=== PATIENT | male | born 1970 | race Caucasian/White ===

== ENCOUNTER 2020-09-12 14:20 | Observation (INO) | payer SELFPAY ==
[2020-09-12 14:21] VITALS: BP 162/101; PULSE 107; RESP 18; TEMP 36.4; O2SAT 96; BMI 31.3
--- NOTE | 2020-09-12 14:32 | EX.ED.DYSGE1 ---
HPI History of Present Illness Chief Complaint: Substance Abuse Informant: patient Narrative Narrative: Patient presents asking for help with alcohol detox. Patient admits to drinking beer and wine and states he probably drinks 1 to 2 L of alcohol a day. He has been drinking pretty regularly since the age of 17. He has been through rehab in the past and the longest he has remained sober has been 2 years. Patient's last drink was just prior to arrival. He denies difficulty with detox in the past and denies ever having a seizure. [facility] Medical History (Updated 09/12/20 @ 16:[address] Laura Reinoso MD) Asthma Home Medications budesonide-formoterol 2 inh INHALATION BID PRN 09/12/20 [History Last Taken 09/12/20] Allergy/AdvReac Type Severity Reaction Status Date / Time No Known Allergies Allergy Verified 09/12/20 14:20 Social History (Updated 09/12/20 @ 14:[address] Laura Reinoso MD) Smoking Status: Current every day smoker tobacco type: cigarettes alcohol intake: current alcohol intake frequency: 3 or more drinks per day Alcohol type: beer and wine substance use type: does not use ROS ROS ED Constitutional Constitutional ED: Denies chills or fever(s) Eyes Eyes: Denies change in vision ENT ENT ED: Denies sore throat Cardiovascular Cardiovascular: Denies chest pain Respiratory/Chest Respiratory/Chest: Denies cough or dyspnea Gastrointestinal Gastrointestinal: Denies abdominal pain, diarrhea, nausea or vomiting Genitourinary Genitourinary ED: Denies dysuria Musculoskeletal Musculoskeletal: Denies back pain Integumentary Denies rash Neurologic Neurologic: Denies headache(s) or weakness Psychiatric Psychiatric: Denies anxiety or depression Endocrine Endocrinology: Denies polydipsia or polyuria Allergic/Immunologic Allergic/Immunologic ED: Denies urticaria EXAM Physical Exam Const Vital Signs: 09/12/20 14:21 Temperature 97.5 F L Temperature Source Temporal Pulse Rate 107 H Respiratory Rate 18 Blood Pressure 162/101 H Blood Pressure Mean 121 Pulse Ox 96 Oxygen Delivery Method Room Air Positive well nourished and well developed General Appearance ED: well developed and other Smells of alcoholic beverage HEENT Reports normocephalic and head/scalp atraumatic Eyes PERRL and EOMs intact bilaterally Neck supple Chest Wall inspection of chest normal and palpation of chest normal Resp normal respiratory effort and clear to auscultation bilaterally Cardio regular rate and regular rhythm GI normal to inspection, nondistended, normoactive bowel sounds Palpation: soft Extremity normal to inspection Neuro oriented x3 and no sensory deficits noted Sensorium / Orientation: alert Motor Exam: strength 5/5 throughout Psych mental status grossly normal Skin no rashes or lesions noted MDM MDM MDM Narrative Medical decision making narrative: Addiction medicine labs are drawn. Lab Data Attestation: I reviewed the patient's lab results. Labs: Laboratory Results - last 24 hr 09/12/20 09/12/20 09/12/20 14:50 14:50 14:50 WBC 9.3 RBC 5.10 Hgb 16.0 Hct 46.9 MCV 92.0 MCH 31.4 MCHC 34.1 RDW Std Deviation 41.7 RDW Coeff of Cristofer 12.3 Plt Count 199 MPV 9.1 Immature Gran % (Auto) 0.200 Neut % (Auto) 50.5 Lymph % (Auto) 39.0 [place] % (Auto) 8.0 Eos % (Auto) 1.4 Baso % (Auto) 0.9 Absolute Neuts (auto) 4.7 Absolute Lymphs (auto) 3.63 Nucleated RBC % 0 Sodium 140 Potassium 3.9 Chloride 104 Carbon Dioxide 26.0 Anion Gap 10 BUN 7 Creatinine 0.84 Estim Creat Clear Calc 99.52 Est GFR (MDRD) Af Amer 123 Est GFR (MDRD) Non-Af 101 BUN/Creatinine Ratio 8.3 L Glucose 169 H Calcium 8.5 Total Bilirubin 0.60 AST 156 H ALT 85 H Alkaline Phosphatase 108 Total Protein 7.4 Albumin 3.8 Globulin 3.6 Albumin/Globulin Ratio 1.1 Urine Opiates Screen Urine Methadone Screen Ur Barbiturates Screen Ur Phencyclidine Scrn Ur Amphetamines Screen U Methamphetamin-MDMA U Benzodiazepines Scrn Urine Cocaine Screen U Cannabinoids Screen Ur Drug Screen Comment Ethyl Alcohol 440.0 H* 09/12/20 15:40 WBC RBC Hgb Hct MCV MCH MCHC RDW Std Deviation RDW Coeff of Cristofer Plt Count MPV Immature Gran % (Auto) Neut % (Auto) Lymph % (Auto) [place] % (Auto) Eos % (Auto) Baso % (Auto) Absolute Neuts (auto) Absolute Lymphs (auto) Nucleated RBC % Sodium Potassium Chloride Carbon Dioxide Anion Gap BUN Creatinine Estim Creat Clear Calc Est GFR (MDRD) Af Amer Est GFR (MDRD) Non-Af BUN/Creatinine Ratio Glucose Calcium Total Bilirubin AST ALT Alkaline Phosphatase Total Protein Albumin Globulin Albumin/Globulin Ratio Urine Opiates Screen NEGATIVE Urine Methadone Screen NEGATIVE Ur Barbiturates Screen NEGATIVE Ur Phencyclidine Scrn NEGATIVE Ur Amphetamines Screen NEGATIVE U Methamphetamin-MDMA NEGATIVE U Benzodiazepines Scrn NEGATIVE Urine Cocaine Screen NEGATIVE U Cannabinoids Screen NEGATIVE Ur Drug Screen Comment Ethyl Alcohol Treatment and Re-Evaluation Comments:: Labs are reviewed. Patient did review the checklist of rules for the detox program. He has reportedly signed this and is in agreement. I will speak with the hospitalist regarding admission. Discharge Plan Triage Chief Complaint: Substance Abuse ED Provider: Laura Reinoso Dx/Rx/DC Orders Clinical Impression: Alcohol intoxication, Desire for detoxification Prescriptions: No Action budesonide-formoterol 160-4.5 mcg/actuation HFA aerosol inhaler 2 inh INHALATION BID PRN (Reason: copd) RF: 0 Primary Care Provider: Care Physician,No Primary Referrals: Care Physician,No Primary [Primary Care Provider] - Disposition Disposition: Acute Care Hospital [facility]
[2020-09-12 15:10] LABS: Absolute Lymphocyte Count 3.63 X10^3/uL (0.83-4.51); Absolute Neutrophil Count 4.7 X10^3/uL (2.0-7.7); Basophil# 0.08 X10^3/uL; Basophil% 0.9 % (0-1); Eosinophil# 0.13 X10^3/uL; Eosinophils% 1.4 % (0-5); Hematocrit 46.9 % (40-54); Lymphocyte # 3.63 X10^3/ul (0.83-4.51); Mean Corp Hgb Conc 34.1 g/dL (32-36); Mean Corpuscular Hgb 31.4 pg (27.0-32.0); Mean Platelet Vol. 9.1 fl (6.2-12.0); Monocyte# 0.74 X10^3/uL; NRBC Flagged by Analyzer 0 % (0-5); Neutrophil % 50.5 % (47-70); Platelet Count 199 K/mm3 (150-450); RBC Distribution Width CV 12.3 % (11.6-14.6); RBC Distribution Width SD 41.7 fl (35.1-43.9); White Blood Count 9.3 K/mm3 (4.4-11.0)
[2020-09-12 15:24] LABS: ALB/GLOB Ratio 1.1 RATIO (0.9-2.4); AST(SGOT) 156 U/L (15-37); Alanine Aminotransfer ALT/SGPT 85 U/L (16-61); Albumin, Serum 3.8 g/dL (3.2-5.0); Alkaline Phosphatase 108 U/L (45-117); Anion Gap 10 (5-15); BUN 7 mg/dL (7-18); BUN/Creat Ratio 8.3 RATIO (10-20); Calcium,Total 8.5 mg/dL (8.5-10.1); Chloride 104 mmol/L (98-107); Creatinine, Serum 0.84 mg/dL (0.70-1.30); EST Glomerular Filtration Rate 101 mL/min (>60); Est Glom Filt Rate - Afr Amer 123 mL/min (>60); Estimated Creatinine Clearance 99.52 ml/min; Globulin 3.6 g/dL (2.2-4.2); Glucose 169 mg/dL (74-106); Potassium 3.9 mmol/L (3.5-5.1); Protein, Total 7.4 g/dL (6.4-8.2); Sodium Level 140 mmol/L (136-145)
[2020-09-12 16:00] LABS: Amphetamine Urine VISTA NEGATIVE (<1000 ng/mL); Barbiturate Urine VISTA NEGATIVE (< 200 ng/mL); Benzodiazepine Urine VISTA NEGATIVE (< 200 ng/mL); Cocaine Urine VISTA NEGATIVE (< 300 ng/mL); Ecstacy Urine VISTA NEGATIVE (< 500 ng/mL); Methadone Urine VISTA NEGATIVE (< 300 ng/mL); PCP Urine VISTA NEGATIVE (< 25 ng/mL); THC Urine VISTA NEGATIVE (< 50 ng/mL); Vista UDS pH Range 5
--- NOTE | 2020-09-12 16:10 | CM.ED ---
JORDYN Note: JORDYN Referral Source: Case Find Referral Reason: ALESSIA COBB met with patient. He reports he wants detox. Patient said that he uses between 12 pack-2 Liters of wine daily. He said that his last use was right before I came in. JORDYN explained [facility] program and contact and patient said he was ok with it. JORDYN called Lis Schneider at [facility] and updated her about patient being admitted to [facility] program. Plan: [facility] when medically cleared [facility]
--- NOTE | 2020-09-12 16:35 | PCM.HP.STD ---
Documented by User: Soni Koroma NP, SHEAR GRINDER OPERATOR-C 09/12/20 16:51 HPI - General General Date of Admission: 09/12/20 HPI Narrative ERIKA CARBAJAL, is a 50 M who presents to the emergency room due requesting withdrawal from alcohol. Patient states his last drink was about an hour ago. He typically drinks a 12 pack of beer or 1-2 L of wine per day. Patient states he has drank heavily since the age of 17. Patient states he has been through detox in the past, most recently in 2017. He denies history of seizure with withdrawal. He denies other drug use. Current pack per day smoker. Denies any withdrawal symptoms currently. Discussed medical stabilization protocol and patient states I just want detox, noting that he does not wish to participate in [facility] services. Upon further discussion, patient agreeable to consult. He has a history of COPD and tobacco dependence. PFSH Medical History Asthma Depression Smoker Home Medications budesonide-formoterol 2 inh INHALATION BID PRN 09/12/20 [History Last Taken 09/12/20] Allergy/AdvReac Type Severity Reaction Status Date / Time No Known Allergies Allergy Verified 09/12/20 14:20 Family History (Updated 09/12/20 @ 16:43 by Soni Koroma NP, SHEAR GRINDER OPERATOR-C) Mother Cancer related to leukemia Father No problems noted. Social History Smoking Status: Current every day smoker tobacco type: cigarettes alcohol intake: current alcohol intake frequency: 3 or more drinks per day Alcohol type: beer and wine substance use type: does not use ROS Constitutional Constitutional: Denies change in weight, chills, fatigue, fever(s) or weakness Cardiovascular Cardiovascular: Denies chest pain, edema, lightheadedness, palpitations or syncope Respiratory/Chest Respiratory/Chest: Denies cough, dyspnea, productive cough, shortness of breath at rest, shortness of breath with exertion or wheezing Gastrointestinal Gastrointestinal: Denies abdominal pain, constipation, diarrhea, nausea or vomiting Genitourinary Genitourinary: Denies burning urination, difficulty urinating, dysuria, hematuria, urinary frequency, urinary incontinence or urinary urgency Musculoskeletal Musculoskeletal: Denies back pain, joint pain or muscle weakness Integumentary Integumentary: Reports systems reviewed and no addt'l complaints, except as documented Neurologic Neurologic: Denies abnormal speech, confusion, dizziness, focal weakness, numbness, paresthesias, seizure-like activity or syncope Psychiatric Psychiatric: Denies anxiety or depression Hematologic/Lymphatic Hematologic/Lymphatic: Denies anemia, easy bleeding or easy bruising Allergic/Immunologic Allergic/Immunologic: Denies hives or asthma Vital Signs Vital Signs Vital Signs: 09/12/20 14:21 Temperature 97.5 F L Temperature Source Temporal Pulse Rate 107 H Respiratory Rate 18 Blood Pressure 162/101 H Blood Pressure Mean 121 Pulse Ox 96 Oxygen Delivery Method Room Air Weight Weight: 205 lb 14.588 oz Body Mass Index (BMI) 31.3 Physical Exam Const alert, oriented x3 and no apparent distress Orientation / Consciousness: awake, oriented to person, oriented to place and oriented to time HEENT normocephalic and moist oral mucous membranes Eyes PERRL, EOMs intact bilaterally and conjunctivae normal Neck no lymphadenopathy Resp normal respiratory effort and clear to auscultation bilaterally Cardio regular rate, regular rhythm and no murmurs Peripheral Pulses: pulses 2+ throughout GI normal to inspection, nondistended, normoactive bowel sounds, non-tender and non-distended Extremity normal to inspection Skin no rashes or lesions noted Lesions: no lesions Rashes: no rashes Trauma: no lacerations or abrasions Neuro CN's II-XII intact bilaterally, no focal motor deficits, no sensory deficits noted and deep tendon reflexes 2+ bilaterally Psych mental status grossly normal and affect normal Lab / Micro Data Result Diagrams: 09/12/20 14:50 09/12/20 14:50 Labs: Laboratory Results - last 24 hr 09/12/20 09/12/20 09/12/20 14:50 14:50 14:50 WBC 9.3 RBC 5.10 Hgb 16.0 Hct 46.9 MCV 92.0 MCH 31.4 MCHC 34.1 RDW Std Deviation 41.7 RDW Coeff of Cristofer 12.3 Plt Count 199 MPV 9.1 Immature Gran % (Auto) 0.200 Neut % (Auto) 50.5 Lymph % (Auto) 39.0 [place] % (Auto) 8.0 Eos % (Auto) 1.4 Baso % (Auto) 0.9 Absolute Neuts (auto) 4.7 Absolute Lymphs (auto) 3.63 Nucleated RBC % 0 Sodium 140 Potassium 3.9 Chloride 104 Carbon Dioxide 26.0 Anion Gap 10 BUN 7 Creatinine 0.84 Estim Creat Clear Calc 99.52 Est GFR (MDRD) Af Amer 123 Est GFR (MDRD) Non-Af 101 BUN/Creatinine Ratio 8.3 L Glucose 169 H Calcium 8.5 Total Bilirubin 0.60 AST 156 H ALT 85 H Alkaline Phosphatase 108 Total Protein 7.4 Albumin 3.8 Globulin 3.6 Albumin/Globulin Ratio 1.1 Urine Opiates Screen Urine Methadone Screen Ur Barbiturates Screen Ur Phencyclidine Scrn Ur Amphetamines Screen U Methamphetamin-MDMA U Benzodiazepines Scrn Urine Cocaine Screen U Cannabinoids Screen Ur Drug Screen Comment Ethyl Alcohol 440.0 H* 09/12/20 15:40 WBC RBC Hgb Hct MCV MCH MCHC RDW Std Deviation RDW Coeff of Cristofer Plt Count MPV Immature Gran % (Auto) Neut % (Auto) Lymph % (Auto) [place] % (Auto) Eos % (Auto) Baso % (Auto) Absolute Neuts (auto) Absolute Lymphs (auto) Nucleated RBC % Sodium Potassium Chloride Carbon Dioxide Anion Gap BUN Creatinine Estim Creat Clear Calc Est GFR (MDRD) Af Amer Est GFR (MDRD) Non-Af BUN/Creatinine Ratio Glucose Calcium Total Bilirubin AST ALT Alkaline Phosphatase Total Protein Albumin Globulin Albumin/Globulin Ratio Urine Opiates Screen NEGATIVE Urine Methadone Screen NEGATIVE Ur Barbiturates Screen NEGATIVE Ur Phencyclidine Scrn NEGATIVE Ur Amphetamines Screen NEGATIVE U Methamphetamin-MDMA NEGATIVE U Benzodiazepines Scrn NEGATIVE Urine Cocaine Screen NEGATIVE U Cannabinoids Screen NEGATIVE Ur Drug Screen Comment Ethyl Alcohol Assessment & Plan Assessment/Plan (1) Alcohol intoxication: (2) Desire for detoxification: PLAN: 1. Alcohol intoxication/requesting alcohol detox, chronic alcohol dependence-alcohol level 440 on admission. Medical stabilization per protocol. Phenobarb taper. As needed regimen for somatic complaints. [facility] consult. 2. Tobacco dependence-encouraged cessation. Nicotine replacement patch. 3. Chronic COPD-no exacerbation. 4. Elevated glucose- check hemoglobin A1c. DVT prophylaxis-low risk, not indicated This patient was seen by KATHY Whelan under the supervision of Dr. Alarcon. Documented by User: Dr. Sena Alarcon MD 09/12/20 17:31 HPI - General General Date of Admission: 09/12/20 [facility] Medical History Asthma Depression Smoker Home Medications budesonide-formoterol 2 inh INHALATION BID PRN 09/12/20 [History Last Taken 09/12/20] Allergy/AdvReac Type Severity Reaction Status Date / Time No Known Allergies Allergy Verified 09/12/20 14:20 Family History (Updated 09/12/20 @ 16:43 by Soni Koroma SHEAR GRINDER OPERATOR, SHEAR GRINDER OPERATOR-C) Mother Cancer related to leukemia Father No problems noted. Social History Smoking Status: Current every day smoker tobacco type: cigarettes alcohol intake: current alcohol intake frequency: 3 or more drinks per day Alcohol type: beer and wine substance use type: does not use Lab / Micro Data Result Diagrams: 09/12/20 14:50 09/12/20 14:50 Addendum Addendum: This patient was seen in conjunction with Soni Koroma. I have independently interviewed and examined the patient and reviewed pertinent historical, laboratory, and other data. I have reviewed her note and concur with her documentation 50-year-old male with past medical history of alcohol abuse, nicotine dependence who comes in requesting for medical stabilization. Patient admits to drinking 12 pack of beer or 1 to 2 pints of wine daily. He last drank 1 hour before coming. Patient requests detox. He initially was now willing to follow-up with program with addiction medicine. He stated that he was going out of the country tomorrow call next month. He plans to be out for 3 months. He later on said he was willing to talk to them. His admitting alcohol level was 440. At the time of being seen, patient denied any new complaints. Physical Exam: Vitals: Gen: Appears disheveled, not pale, not jaundiced CVS:HS I +II, regular, no murmurs RESP: CTA GI: BS present and normal, soft, nontender, no palpable organs EXT:No edema Labs: AST and ALT elevated; no previous labs to compare ASSESSMENT: 1. Acute alcohol intoxication 2. Request for medical stabilization 3. Elevated blood pressure without history of hypertension 4. Elevated liver function secondary to chronic alcohol use Plan: Admit to PCU, start on phenobarb taper Continue on folic acid, multivitamin, thiamine Addiction social work consult Visit Charges Inpatient E&M: 12723 Init Hosp L2
[2020-09-12 17:05] VITALS: BMI 30.5
[2020-09-12 17:11] VITALS: BP 120/72; PULSE 60; RESP 16; TEMP 36.6; O2SAT 96
[2020-09-12 17:41] LABS: Hemoglobin A1c 5.5 % (3.8-5.6)
[2020-09-12] MEDS: Ibuprofen 600 MG Tablet PO (18:44)
--- NOTE | 2020-09-12 19:13 | NURSING ---
Patient called out, states he wants to sign out AMA. He says it is not the right time to do this right now.
--- NOTE | 2020-09-13 12:19 | PCM.DC.SUM ---
Documented by User: Soni Koroma NP, SALESPERSON FLORIST SUPPLIES-C 09/13/20 12:22 Providers Date of Admission: 09/12/20 Date of Discharge: 09/12/20 Primary Care Physician: No Primary Care Phys Reason For Visit: ACUTE ALCOHOL WITHDRAWAL Diagnosis Discharge Diagnosis (1) Alcohol intoxication: Status: Acute Code(s): F10.929 - Alcohol use, unspecified with intoxication, unspecified (2) Desire for detoxification: Status: Acute Medications at Discharge Home Medications budesonide-formoterol 2 inh INHALATION BID PRN 09/12/20 Hospital Course Operations None Procedures None Summary of Care Provided Minutes Spent on Discharge: 35 Hospital Course: Patient is a 50-year-old male admitted 09/12/2020 requesting detox from alcohol. 1. Alcohol intoxication/requesting alcohol detox, chronic alcohol dependence-alcohol level 440 on admission. Medical stabilization per protocol ordered. Phenobarb taper. As needed regimen for somatic complaints. Patient signed out AGAINST MEDICAL ADVICE within 2 hours of being admitted. 2. Tobacco dependence-encouraged cessation. 3. Chronic COPD-no exacerbation. Physical Exam Const alert, oriented x3 and no apparent distress Orientation / Consciousness: awake, oriented to person, oriented to place and oriented to time HEENT normocephalic and moist oral mucous membranes Eyes PERRL, EOMs intact bilaterally and conjunctivae normal Neck no lymphadenopathy Resp normal respiratory effort and clear to auscultation bilaterally Cardio regular rate, regular rhythm and no murmurs Peripheral Pulses: pulses 2+ throughout GI normal to inspection, nondistended, normoactive bowel sounds, non-tender and non-distended Extremity normal to inspection Skin no rashes or lesions noted Lesions: no lesions Rashes: no rashes Trauma: no lacerations or abrasions Neuro CN's II-XII intact bilaterally, no focal motor deficits, no sensory deficits noted and deep tendon reflexes 2+ bilaterally Psych mental status grossly normal and affect normal Patient seen and examined prior to discharge. Physical assessment as noted above. This patient was seen by KATHY Whelan under the supervision of Dr. Alarcon. ABG / Lab / Microbiology Data Result Diagrams: 09/12/20 14:50 09/12/20 14:50 Laboratory: Laboratory Results - last 24 hr 09/12/20 09/12/20 09/12/20 14:50 14:50 14:50 WBC 9.3 RBC 5.10 Hgb 16.0 Hct 46.9 MCV 92.0 MCH 31.4 MCHC 34.1 RDW Std Deviation 41.7 RDW Coeff of Cristofer 12.3 Plt Count 199 MPV 9.1 Immature Gran % (Auto) 0.200 Neut % (Auto) 50.5 Lymph % (Auto) 39.0 [place] % (Auto) 8.0 Eos % (Auto) 1.4 Baso % (Auto) 0.9 Absolute Neuts (auto) 4.7 Absolute Lymphs (auto) 3.63 Nucleated RBC % 0 Sodium 140 Potassium 3.9 Chloride 104 Carbon Dioxide 26.0 Anion Gap 10 BUN 7 Creatinine 0.84 Estim Creat Clear Calc 99.52 Est GFR (MDRD) Af Amer 123 Est GFR (MDRD) Non-Af 101 BUN/Creatinine Ratio 8.3 L Glucose 169 H Hemoglobin A1c Calcium 8.5 Total Bilirubin 0.60 AST 156 H ALT 85 H Alkaline Phosphatase 108 Total Protein 7.4 Albumin 3.8 Globulin 3.6 Albumin/Globulin Ratio 1.1 Urine Opiates Screen Urine Methadone Screen Ur Barbiturates Screen Ur Phencyclidine Scrn Ur Amphetamines Screen U Methamphetamin-MDMA U Benzodiazepines Scrn Urine Cocaine Screen U Cannabinoids Screen Ur Drug Screen Comment Ethyl Alcohol 440.0 H* 09/12/20 09/12/20 14:50 15:40 WBC RBC Hgb Hct MCV MCH MCHC RDW Std Deviation RDW Coeff of Cristofer Plt Count MPV Immature Gran % (Auto) Neut % (Auto) Lymph % (Auto) [place] % (Auto) Eos % (Auto) Baso % (Auto) Absolute Neuts (auto) Absolute Lymphs (auto) Nucleated RBC % Sodium Potassium Chloride Carbon Dioxide Anion Gap BUN Creatinine Estim Creat Clear Calc Est GFR (MDRD) Af Amer Est GFR (MDRD) Non-Af BUN/Creatinine Ratio Glucose Hemoglobin A1c 5.5 Calcium Total Bilirubin AST ALT Alkaline Phosphatase Total Protein Albumin Globulin Albumin/Globulin Ratio Urine Opiates Screen NEGATIVE Urine Methadone Screen NEGATIVE Ur Barbiturates Screen NEGATIVE Ur Phencyclidine Scrn NEGATIVE Ur Amphetamines Screen NEGATIVE U Methamphetamin-MDMA NEGATIVE U Benzodiazepines Scrn NEGATIVE Urine Cocaine Screen NEGATIVE U Cannabinoids Screen NEGATIVE Ur Drug Screen Comment Ethyl Alcohol Meaningful Use Info Meaningful Use Diagnoses (Choose all that apply): None applicable Discharge Plan Admission Admit Date/Time: 09/12/20 16:14 Attending Provider: Sena Alarcon Primary Care Provider: Care Physician,No Primary Discharge Orders/Prescriptions Prescriptions: No Action budesonide-formoterol 160-4.5 mcg/actuation HFA aerosol inhaler 2 inh INHALATION BID PRN (Reason: copd) RF: 0 Referrals / Follow Up: Care Physician,No Primary [Primary Care Provider] - Disposition Disposition (needs filled in before D/C Order can be placed): Against Medical Advice Documented by User: Dr. Sena Alarcon MD 09/13/20 13:10 Providers Date of Admission: 09/12/20 Reason For Visit: ACUTE ALCOHOL WITHDRAWAL Medications at Discharge Home Medications budesonide-formoterol 2 inh INHALATION BID PRN 09/12/20 ABG / Lab / Microbiology Data Result Diagrams: 09/12/20 14:50 09/12/20 14:50 Discharge Plan Admission Admit Date/Time: 09/12/20 16:14 Attending Provider: Sena Alarcon Primary Care Provider: Moreno PhysicianRosy Primary Discharge Orders/Prescriptions Prescriptions: No Action budesonide-formoterol 160-4.5 mcg/actuation HFA aerosol inhaler 2 inh INHALATION BID PRN (Reason: copd) RF: 0 Referrals / Follow Up: Care Physician,No Primary [Primary Care Provider] - Disposition Disposition (needs filled in before D/C Order can be placed): Against Medical Advice Addendum Addendum: This patient was seen in conjunction with Soni Koroma.?I have independently interviewed and examined the patient and reviewed pertinent historical, laboratory, and other data. I have reviewed her note and concur with her documentation 50-year-old male with past medical history of alcohol abuse, nicotine dependence who comes in requesting for medical stabilization.? Patient admits to drinking 12 pack of beer or 1 to 2 pints of wine daily.? He last drank 1 hour before coming.? Patient admitting alcohol level was 440. He was admitted to the [facility] floor on the phenobarbital withdrawal protocol. Patient however signed out AGAINST MEDICAL ADVICE less than 2 hours of admission. Physical exam?see H&P Visit Charges OBSV E&M: 85555 Observ/hosp same date L2
== END 2020-09-12 19:00 | disposition left against medical advice (07) ==
LOC: ED 16:04 → MS3 19:13
PROVIDERS: Nurse Practitioner Family; Admitting Provider Internal Medicine; Emergency Provider Emergency Medicine; Visit Provider Internal Medicine
DX: F10.239 Alcohol dependence with withdrawal, unspecified (principal); F10.229 Alcohol dependence with intoxication, unspecified; F17.210 Nicotine dependence, cigarettes, uncomplicated; J44.9 Chronic obstructive pulmonary disease, unspecified; R73.9 Hyperglycemia, unspecified; Y90.8 Blood alcohol level of 240 mg/100 ml or more
CPT/HCPCS: 80053; 80307; 82077; 83036; 85025; 99218; 99282; A4216; G0378

== ENCOUNTER 2023-03-24 17:43 | Inpatient (IN) | payer MEDICAID, SELFPAY ==
[2023-03-24 17:44] VITALS: BP 167/115; PULSE 126; RESP 17; TEMP 36.9; O2SAT 98; BMI 35.7
[2023-03-24 19:53] LABS: Absolute Neutrophil Count 8.4 X10^3/uL (2.0-7.7); Basophil# 0.09 X10^3/uL; Basophil% 0.7 % (0-1); Eosinophil# 0.09 X10^3/uL; Eosinophils% 0.7 % (0-5); Hematocrit 44.9 % (40-54); Hemoglobin 15.5 g/dL (13.0-16.5); Lymphocyte % 29.9 % (19-41); Mean Corp Hgb Conc 34.5 g/dL (32-36); Mean Corpuscular Hgb 30.5 pg (27.0-32.0); Mean Corpuscular Volume 88.4 fL (80-94); Mean Platelet Vol. 9.3 fl (6.2-12.0); Monocyte# 1.01 X10^3/uL; Monocyte% 7.4 % (0-10); NRBC Flagged by Analyzer 0 % (0-5); Neutrophil # 8.37 X10^3/uL (2.7-7.7); Platelet Count 195 K/mm3 (150-450); RBC Distribution Width CV 16.5 % (11.6-14.6); RBC Distribution Width SD 53.3 fl (35.1-43.9); Red Blood Count 5.08 M/mm3 (4.6-6.2); White Blood Count 13.7 K/mm3 (4.4-11.0)
[2023-03-24] MEDS: 0.9% Normal Saline (1000mL) 1,000 ML 1000 ML IV (20:00)
[2023-03-24] MEDS: Ondansetron 4 MG/2 ML Vial IV (20:00)
[2023-03-24] MEDS: LORazepam 2 MG/ML Syringe 1 MG IV (20:00)
--- NOTE | 2023-03-24 20:04 | EDS_ITS ---
HPI History of Present Illness Chief Complaint: Substance Abuse Informant: patient and spouse/S.O. Narrative Narrative: Presents for detox and withdrawal from alcohol. Patient states he normally drinks 12-16 beers a day. He last went through detox officially about 5 or 6 years ago. He tried to stop drinking in December. He tried in February. But he states he gets shaky and feels very bad. He starts drinking again. He has been trying to cut back here the last few days to a week. Every time he cuts back he gets nausea and vomiting and he feels shaky and nervous. If he starts drinking the vomiting goes away. He denies abdominal pain. He has not vomited blood or seeing blood in the stool. He has not had hallucinations. But he does feel like he is in withdrawal now. He is pacing and nervous. He would like to be admitted for detox and then get into a program afterwards. [facility] Medical History Alcohol abuse Asthma Depression Smoker Home Medications budesonide-formoterol HFA 160 mcg-4.5 mcg/actuation aerosol inhaler 2 inh inhalation BID PRN copd 09/12/20 [History Last Taken 09/12/20] Allergy/AdvReac Type Severity Reaction Status Date / Time No Known Allergies Allergy Verified 03/24/23 17:44 Family History Mother Cancer related to leukemia Father No problems noted. Social History Smoking Status: Current every day smoker tobacco type: cigarettes alcohol intake: current alcohol intake frequency: 3 or more drinks per day Alcohol type: beer and wine substance use type: does not use ROS ROS ED Constitutional Constitutional ED: Denies chills or fever(s) Eyes Eyes: Denies change in vision ENT ENT ED: Denies rhinorrhea Cardiovascular Cardiovascular: Reports other Details: Can feel his heart beat fast but it does not cause any discomfort for him. ; Denies chest pain or palpitations Respiratory/Chest Respiratory/Chest: Denies cough or dyspnea Gastrointestinal Gastrointestinal: Reports nausea and vomiting; Denies abdominal pain or diarrhea Musculoskeletal Musculoskeletal: Denies myalgias Integumentary Denies rash Neurologic Neurologic: Denies headache(s), paresthesias or weakness Psychiatric Psychiatric: Reports anxiety; Denies depression or suicidal ideation Hematologic/Lymphatic Hematologic/Lymphatic: Denies easy bleeding or easy bruising Allergic/Immunologic Allergic/Immunologic ED: Denies urticaria EXAM Physical Exam Narrative Exam Narrative: CONSTITUTIONAL: Patient is nontoxic in appearance. Cooperative. But he is pacing around the room when I first meet him. HEENT: No notable trauma. Mucous membranes moist. No sinus tenderness. No indication of pain with swallowing. There is just a hint of diaphoresis on his forehead. But he just felt as though he was going to throw up prior to this. He denies actual normal diaphoresis. EYES: No conjunctival injection. No proptosis. No icterus NECK:No JVD. No stridor. CARDIOVASCULAR: Mildly tachycardic rate. Regular rhythm. No notable murmur. No JVD. RESPIRATORY: No respiratory distress. Breathing is unlabored. No wheezes. No rhonchi. No rales. No pain with a deep breath. No chest wall tenderness. GASTROINTESTINAL: Not distended. Bowel sounds are normal. No tenderness. No guarding. No rebound. No palpable mass. No bruit is heard.-Nausea and vomiting his abdomen is overall benign other than mild obesity. GENITOURINARY: No tenderness over the bladder. No CVA tenderness. MUSCULOSKELETAL: Atraumatic. NEUROLOGICAL: Patient is alert and appropriate. No focal deficit noted. Normal gait and balance. SKIN: No noted rashes. No diaphoresis. PSYCHIATRIC: Patient is anxious. But no sign of flight of ideas or hallu cinations. Const Vital Signs: 03/24/23 17:44 Temperature 98.5 F Temperature Source Temporal Pulse Rate 126 H Respiratory Rate 17 Blood Pressure 167/115 H Blood Pressure Mean 132 Pulse Ox 98 Oxygen Delivery Method Room Air MDM MDM MDM Narrative Medical decision making narrative: CBC shows mild elevation of white count at 13.7 which is nonspecific. Platelets are normal. Hemoglobin is normal. Patient's electrolytes show minimally low potassium that should self-correct with diet. Glucose was only mildly up at 122. Liver function test showed mild nonspecific elevations of AST ALT and alkaline phosphatase which he has had before. Serum ethanol is 186. Patient's urine toxicology screen shows no result at this time. But there are no results in there that would change the acute treatment. Toxicology screens in the past have been negative. I discussed case with hospitalist. We will initiate folic acid and thiamine. Will be admitted. With his long history of drinking, trying to stop as an outpatient, having withdrawal symptoms at this time inpatient management is appropriate and safe on this patient. Lab Data Attestation: I reviewed the patient's lab results. Labs: Laboratory Results - last 24 hr 03/24/23 03/24/23 19:41 21:25 WBC 13.7 H RBC 5.08 Hgb 15.5 Hct 44.9 MCV 88.4 MCH 30.5 MCHC 34.5 RDW Std Deviation 53.3 H RDW Coeff of Cristofer 16.5 H Plt Count 195 MPV 9.3 Immature Gran % (Auto) 0.300 Neut % (Auto) 61.0 Lymph % (Auto) 29.9 [place]ine % (Auto) 7.4 Eos % (Auto) 0.7 Baso % (Auto) 0.7 Absolute Neuts (auto) 8.4 H Absolute Lymphs (auto) 4.10 Nucleated RBC % 0 Sodium 136 Potassium 3.4 L Chloride 98 Carbon Dioxide 24.0 Anion Gap 14 BUN 6 L Creatinine 0.74 Estim Creat Clear Calc 110.41 Est GFR (MDRD) Af Amer 142 Est GFR (MDRD) Non-Af 117 BUN/Creatinine Ratio 8.1 L Glucose 122 H Calcium 9.2 Total Bilirubin 1.00 AST 132 H ALT 84 H Alkaline Phosphatase 126 H Total Protein 7.4 Albumin 3.8 Globulin 3.6 Albumin/Globulin Ratio 1.1 Ur Drug Screen Comment Ethyl Alcohol 186.0 EKG Initial EKG: Comments: My independent interpretation of the patient's EKG shows a sinus rhythm with a normal rate at this time at 91. No ventricular ectopy. No acute ST elevation or depression. WV interval, QRS duration and QTc are overall normal Discharge Plan Triage Chief Complaint: Substance Abuse ED Provider: Charlie Gonzalez Dx/Rx/DC Orders Clinical Impression: Desire for detoxification, Alcohol intoxication Prescriptions: No Action budesonide-formoterol 160-4.5 mcg/actuation HFA aerosol inhaler 2 inh INHALATION BID PRN (Reason: copd) Patient Comments: inhale 2 puffs by mouth 1-2 TIMES PER DAY Primary Care Provider: Care Physician,No Primary Referrals: Care Physician,No Primary [Primary Care Provider] - Disposition Disposition: [facility]
[2023-03-24 20:16] LABS: ALB/GLOB Ratio 1.1 RATIO (0.9-2.4); AST(SGOT) 132 U/L (15-37); Alanine Aminotransfer ALT/SGPT 84 U/L (16-61); Albumin, Serum 3.8 g/dL (3.2-5.0); Alkaline Phosphatase 126 U/L (45-117); Anion Gap 14 (5-15); BUN 6 mg/dL (7-18); BUN/Creat Ratio 8.1 RATIO (10-20); Calcium,Total 9.2 mg/dL (8.5-10.1); Chloride 98 mmol/L (98-107); Creatinine, Serum 0.74 mg/dL (0.70-1.30); EST Glomerular Filtration Rate 117 mL/min (>60); Est Glom Filt Rate - Afr Amer 142 mL/min (>60); Estimated Creatinine Clearance 110.41 ml/min; Globulin 3.6 g/dL (2.2-4.2); Glucose 122 mg/dL (74-106); Potassium 3.4 mmol/L (3.5-5.1); Protein, Total 7.4 g/dL (6.4-8.2); Sodium Level 136 mmol/L (136-145)
[2023-03-24 21:59] LABS: Amphetamine Urine VISTA NEGATIVE (<1000 ng/mL); Barbiturate Urine VISTA NEGATIVE (< 200 ng/mL); Benzodiazepine Urine VISTA NEGATIVE (< 200 ng/mL); Cocaine Urine VISTA NEGATIVE (< 300 ng/mL); Ecstacy Urine VISTA NEGATIVE (< 500 ng/mL); Methadone Urine VISTA NEGATIVE (< 300 ng/mL); PCP Urine VISTA NEGATIVE (< 25 ng/mL); THC Urine VISTA NEGATIVE (< 50 ng/mL); Vista UDS pH Range 6
--- NOTE | 2023-03-24 22:14 | PCM.HP.STD ---
[facility] - General General Date of Admission: 03/24/23 Date of Service: 03/24/23 Chief Complaint: Alcohol withdrawal, nausea, vomiting and diaphoresis. HPI Narrative ERIKA CARBAJAL, is a 52-year-old [place] M with a past medical history of asthma, depression, tobacco abuse and severe alcohol abuse; with patient routinely ingesting 12-16 beers daily in addition to wine with a history of previous alcohol detox approximately 5 to 6 years ago who presents to [facility] ER complaining of alcohol withdrawal, nausea, vomiting and diaphoresis. Mr. Carbajal reports his symptoms began approximately 2 weeks prior to admission when he attempted to taper his own alcohol use at home with patient soon developing severe insomnia followed by worsening depression and anxiety. He then developed nausea with bilious emesis that was only made better by drinking more alcohol. He denies associated fever, chills, diarrhea or constipation but he does admit to diaphoresis. In the ER he was noted to have a blood alcohol concentration of 186 mg/dL consistent with acute alcohol intoxication complicated by clinical evidence of acute alcohol withdrawal and laboratory evidence of hypokalemia of 3.4 mmol/L present on admission and he was then admitted to the CDU under observation status for ongoing care for stay that is expected to be less than 48 hours. [facility] Medical History Alcohol abuse Asthma Depression Smoker Home Medications budesonide-formoterol HFA 160 mcg-4.5 mcg/actuation aerosol inhaler 2 inh inhalation BID PRN copd 09/12/20 [History Last Taken 09/12/20] Allergy/AdvReac Type Severity Reaction Status Date / Time No Known Allergies Allergy Verified 03/24/23 17:44 Family History Mother Cancer related to leukemia Father No problems noted. Social History Smoking Status: Current every day smoker tobacco type: cigarettes alcohol intake: current alcohol intake frequency: 3 or more drinks per day Alcohol type: beer and wine substance use type: does not use ROS ROS Narrative Review of systems: Constitution: Patient denies chills or fever but does admit to diaphoresis. Eyes: Patient denies visual changes. ENT: Patient denies runny nose or sore throat. Cardiovascular: Patient denies chest pain but he does admit to occasionally feeling his heart racing. Respiratory: Patient denies shortness of breath or cough. Gastrointestinal: Patient admits to nausea with bilious emesis. He denies abdominal pain or diarrhea. Musculoskeletal: Patient denies myalgias and arthralgias. Integumentary: Patient denies rash. Neurologic: Patient denies headache, paresthesias or focal neurologic weakness. Psychiatric: Patient admits to worsening anxiety but he denies depression or suicidal ideation at this time. Hematologic: Patient denies easy bleeding or easy bruisability. Allergic: Patient denies lip swelling, tongue swelling or urticaria. 14 point review of systems otherwise negative except for positives noted above Vital Signs Vital Signs Vital Signs: 03/24/23 17:44 Temperature 98.5 F Temperature Source Temporal Pulse Rate 126 H Respiratory Rate 17 Blood Pressure 167/115 H Blood Pressure Mean 132 Pulse Ox 98 Oxygen Delivery Method Room Air Weight Weight: 234 lb 14.4 oz Body Mass Index (BMI) 35.7 Physical Exam Const alert, oriented x3, no apparent distress and average body habitus Constitutional Narrative: Patient is nontoxic in appearance but he is pacing around the room and notably anxious. General Appearance: cooperative HEENT normocephalic, head/scalp atraumatic, hearing grossly normal bilaterally, moist oral mucous membranes and oropharynx normal Eyes PERRL and EOMs intact bilaterally Eyes Narrative: Conjunctivae are injected. Neck no lymphadenopathy and supple Resp normal respiratory effort, no retractions, no use of accessory muscles and clear to auscultation bilaterally Cardio regular rate and regular rhythm GI normal to inspection, nondistended, normoactive bowel sounds, soft to palpation, non-tender and non-distended Extremity normal to inspection, full ROM and no clubbing, cyanosis or edema Skin Skin Narrative: Patient has no evidence of rash at this time. Neuro oriented x3, CN's II-XII intact bilaterally, moves all extremities and no focal motor deficits Sensorium / Orientation: awake, alert, oriented to person, oriented to place and oriented to time Speech: speech normal Motor Exam: strength 5/5 throughout Psych Mood & Affect: anxious Results Medical Records Data Attestation: I reviewed the patient's medical records Lab / Micro Data Attestation: I reviewed the patient's lab results. 03/24/23 19:41 03/24/23 19:41 Labs: Laboratory Results - last 24 hr 03/24/23 19:41: WBC 13.7 H, RBC 5.08, Hgb 15.5, Hct 44.9, MCV 88.4, MCH 30.5, MCHC 34.5, RDW Std Deviation 53.3 H, RDW Coeff of Cristofer 16.5 H, Plt Count 195, MPV 9.3, Immature Gran % (Auto) 0.300, Neut % (Auto) 61.0, Lymph % (Auto) 29.9, [place] % (Auto) 7.4, Eos % (Auto) 0.7, Baso % (Auto) 0.7, Absolute Neuts (auto) 8.4 H, Absolute Lymphs (auto) 4.10, Nucleated RBC % 0, Sodium 136, Potassium 3.4 L, Chloride 98, Carbon Dioxide 24.0, Anion Gap 14, BUN 6 L, Creatinine 0.74, Estim Creat Clear Calc 110.41, Est GFR (MDRD) Af Amer 142, Est GFR (MDRD) Non-Af 117, BUN/Creatinine Ratio 8.1 L, Glucose 122 H, Calcium 9.2, Total Bilirubin 1.00, AST 132 H, ALT 84 H, Alkaline Phosphatase 126 H, Total Protein 7.4, Albumin 3.8, Globulin 3.6, Albumin/Globulin Ratio 1.1, Ethyl Alcohol 186.0 03/24/23 21:25: Urine Opiates Screen NEGATIVE, Urine Methadone Screen NEGATIVE, Ur Barbiturates Screen NEGATIVE, Ur Phencyclidine Scrn NEGATIVE, Ur Amphetamines Screen NEGATIVE, MDMA (Ecstasy) Screen NEGATIVE, U Benzodiazepines Scrn NEGATIVE, Urine Cocaine Screen NEGATIVE, U Cannabinoids Screen NEGATIVE, Ur Drug Screen Comment Assessment & Plan Assessment/Plan (1) Alcohol intoxication: QUALIFIERS: Complication of substance-induced condition: uncomplicated Qualified Code(s): F10.920 - Alcohol use, unspecified with intoxication, uncomplicated (2) Desire for detoxification: (3) Anxiety: (4) Insomnia: QUALIFIERS: Insomnia type: alcohol-induced Qualified Code(s): F10.982 - Alcohol use, unspecified with alcohol-induced sleep disorder PLAN: Plan 1. Acute EtOH Withdrawal in the setting of Severe Chronic EtOH Abuse - Admit to CDU under observation status. Give supplemental Thiamine and Folate plus start Phenobarbital taper. Avoid Tylenol to prevent potential hepatotoxicity. Give ibuprofen prn for pain or fever. EtOH Cessation was strongly encouraged. 2. Severe Anxiety with protracted Insomnia arising from #1 - Continue supportive care and give prn Benadryl for insomnia. 3. Hypokalemia of 3.4 mmol/L present on admission - Give supplemental KCl and then recheck BMP in the AM to ensure improvement. 4. History of Asthma - Stable with no evidence of flare at this time. Give prn nebulizers. 5. Tobacco Abuse - Tobacco Cessation will be strongly encouraged with Nicotine patch offered to control cravings. 6. DVT prophylaxis - Lovenox 40 mg sq daily plus SCD's. Total time: Approximately 45 minutes. Charges/Coding Visit Charges OBSV E&M: 52660 Observ/hosp same date L1
[2023-03-24] MEDS: Thiamine Hydrochloride 100 MG in 0.9% Normal Saline (50mL Bag) 50 ML 200 MG IV (22:44)
[2023-03-24 23:03] VITALS: BMI 35.4
[2023-03-24 23:15] VITALS: BP 145/85; PULSE 102; RESP 18; TEMP 36.8; O2SAT 98
[2023-03-24] MEDS: Folic Acid 1 MG in 0.9% Normal Saline (50mL Bag) 50 ML 200 MG IV (23:20)
[2023-03-24] MEDS: KCL 20MEQ in 0.9% NS 20 MEQ/1,000 ML IV.SOLN. 125 MEQ IV (23:31)
[2023-03-24] MEDS: Phenobarbital 32.4 MG Tablet 64.8 MG PO (23:56)
[2023-03-25] VITALS (8 sets, daily range): BP systolic 139–170; BP diastolic 90–106; PULSE 80–106; RESP 14–18; TEMP 36.7–36.8; O2SAT 95–99; BMI 35.4
[2023-03-25] MEDS: Potassium Chloride Oral Tablet 20 MEQ PO (02:47)
[2023-03-25] MEDS: Gabapentin 300 MG Capsule PO (02:47)
[2023-03-25] MEDS: Ondansetron 4 MG/2 ML Vial IV (02:49)
[2023-03-25] MEDS: 0.9% Saline Lock 10 ML Syringe IV (02:52)
[2023-03-25] MEDS: Phenobarbital 32.4 MG Tablet 64.8 MG PO ×5 (03:03→20:02)
[2023-03-25] MEDS: Budesonide Respules 0.5 MG/2 ML AMPUL.NEB. INHALATION ×2 (07:22→18:47)
[2023-03-25] MEDS: Albuterol 2.5 MG/3 ML VIAL.NEB. INHALATION ×3 (07:22→18:47)
--- NOTE | 2023-03-25 07:27 | PCM.PN.HOSP ---
Reason for Visit Reason for Visit: Alcohol detox Subjective Subjective Patient is a 52-year-old male who presents emergency department at [facility] on 03/24/2023 complaining of nausea, vomiting, and diaphoresis related to acute alcohol withdrawal. Patient reports that he routinely ingest 12-16 beers daily in addition to wine. He has had previous detox about 5 to 6 years ago but had not maintain sobriety. His symptoms began about 2 weeks prior to admission when he began to try to taper his own alcohol use at home but then developed severe insomnia, worsening depression and anxiety. He progressively developed nausea and bilious emesis that was only improved by drinking more alcohol. Blood alcohol concentration the time of presentation was 186 mg/dL. He was agreeable for admission the ramp program. Patient states he is feeling better than when he presented last evening. Does complain of some epigastric discomfort intermittently. No current complaints however. Objective Data Objective Data Vital Signs: Vital Signs Temp Pulse Resp BP Pulse Ox O2 Del Method 98.2 F 98 18 146/91 H 97 Room Air 03/25/23 06:56 03/25/23 06:56 03/25/23 06:56 03/25/23 06:56 03/25/23 06:56 03/25/23 06:56 Oxygen Delivery Method Room Air Weight: 106.1 kg Body Mass Index (BMI) 35.4 Intake & Output: Intake and Output for Last 24 Hours 03/23/23 03/24/23 03/25/23 23:59 23:59 23:59 Intake Total 1000 / 1000 101.2 / 101.2 Balance 1000 / 1000 101.2 / 101.2 Lab / Micro Data 03/25/23 06:54 03/25/23 06:54 Labs: Laboratory Results - last 24 hr 03/24/23 19:41: WBC 13.7 H, RBC 5.08, Hgb 15.5, Hct 44.9, MCV 88.4, MCH 30.5, MCHC 34.5, RDW Std Deviation 53.3 H, RDW Coeff of Cristofer 16.5 H, Plt Count 195, MPV 9.3, Immature Gran % (Auto) 0.300, Neut % (Auto) 61.0, Lymph % (Auto) 29.9, [place] % (Auto) 7.4, Eos % (Auto) 0.7, Baso % (Auto) 0.7, Absolute Neuts (auto) 8.4 H, Absolute Lymphs (auto) 4.10, Nucleated RBC % 0, Sodium 136, Potassium 3.4 L, Chloride 98, Carbon Dioxide 24.0, Anion Gap 14, BUN 6 L, Creatinine 0.74, Estim Creat Clear Calc 110.41, Est GFR (MDRD) Af Amer 142, Est GFR (MDRD) Non-Af 117, BUN/Creatinine Ratio 8.1 L, Glucose 122 H, Calcium 9.2, Total Bilirubin 1.00, AST 132 H, ALT 84 H, Alkaline Phosphatase 126 H, Total Protein 7.4, Albumin 3.8, Globulin 3.6, Albumin/Globulin Ratio 1.1, Ethyl Alcohol 186.0 03/24/23 21:25: Urine Opiates Screen NEGATIVE, Urine Methadone Screen NEGATIVE, Ur Barbiturates Screen NEGATIVE, Ur Phencyclidine Scrn NEGATIVE, Ur Amphetamines Screen NEGATIVE, MDMA (Ecstasy) Screen NEGATIVE, U Benzodiazepines Scrn NEGATIVE, Urine Cocaine Screen NEGATIVE, U Cannabinoids Screen NEGATIVE, Ur Drug Screen Comment Physical Exam Const alert, oriented x3, no apparent distress and well nourished; Negative for average body habitus Constitutional Narrative: Obese, middle-aged, male, lying in bed watching television, appears comfortable nontoxic HEENT head/scalp atraumatic and moist oral mucous membranes HEENT Narrative: Mallampati 3, no thrush Resp normal respiratory effort, no retractions, no use of accessory muscles and clear to auscultation bilaterally Auscultation: Negative for rales, rhonchi or wheezes Cardio regular rate, regular rhythm, S1 normal heart sound, S2 normal heart sound, no murmurs, no rub, no gallops and no clicks GI normal to inspection, nondistended, normoactive bowel sounds, soft to palpation and non-tender Extremity no clubbing, cyanosis or edema Extremity Narrative: Pedal pulses are 2+ Neuro oriented x3, moves all extremities and no focal motor deficits Neuro Narrative: No significant tremor noted at this time Speech: speech normal Psych affect normal Psych Narrative: Eye contact is good and patient interacts normally. Assessment & Plan Assessment/Plan (1) Desire for detoxification: (2) Alcohol intoxication: QUALIFIERS: Complication of substance-induced condition: uncomplicated Qualified Code(s): F10.920 - Alcohol use, unspecified with intoxication, uncomplicated (3) Hypokalemia: (4) Alcoholic hepatitis: (5) Hyperbilirubinemia: PLAN: Plan Acute alcohol withdrawal -Continue phenobarbital taper -Continue thiamine folate -Continue supportive medications for symptom management -180 consultation Hypokalemia -Resolved Alcoholic hepatitis/hyperbilirubinemia -Mild transaminase elevation -Anticipate improvement with alcohol cessation -Repeat lab in a.m. Nausea/vomiting -Secondary to acute alcohol withdrawal -Symptom management with as needed medication -Phenobarbital taper as above -will schedule Protonix as I suspect he has EtOH induced gastritis History of asthma -As needed albuterol Tobacco abuse -Recommend tobacco cessation -Continue nicotine patch DVT prophylaxis -Low risk -Discontinue Lovenox -Encourage frequent and early mobility CODE STATUS Full code Charges/Coding Visit Charges Inpatient E&M: 96750 Subs Hosp L2
[2023-03-25 07:30] LABS: Absolute Neutrophil Count 9.5 X10^3/uL (2.0-7.7); Basophil# 0.07 X10^3/uL; Basophil% 0.5 % (0-1); Eosinophil# 0.22 X10^3/uL; Eosinophils% 1.5 % (0-5); Hematocrit 42.2 % (40-54); Hemoglobin 14.2 g/dL (13.0-16.5); Lymphocyte % 26.4 % (19-41); Mean Corp Hgb Conc 33.6 g/dL (32-36); Mean Corpuscular Hgb 30.7 pg (27.0-32.0); Mean Corpuscular Volume 91.3 fL (80-94); Mean Platelet Vol. 9.8 fl (6.2-12.0); Monocyte# 0.76 X10^3/uL; Monocyte% 5.3 % (0-10); NRBC Flagged by Analyzer 0 % (0-5); Neutrophil # 9.49 X10^3/uL (2.7-7.7); Neutrophil % 65.9 % (47-70); Platelet Count 154 K/mm3 (150-450); RBC Distribution Width CV 16.6 % (11.6-14.6); RBC Distribution Width SD 55.7 fl (35.1-43.9); Red Blood Count 4.62 M/mm3 (4.6-6.2); White Blood Count 14.4 K/mm3 (4.4-11.0)
[2023-03-25] MEDS: Thiamine Hydrochloride 100 MG Tablet PO (07:40)
[2023-03-25] MEDS: Folic Acid 1 MG Tablet PO (07:40)
[2023-03-25] MEDS: Multivitamins,Therapeutic Tablet 1 TABLET PO (07:40)
[2023-03-25 07:47] LABS: International Normalized Ratio 1.1; Prothrombin Time (Protime)PT. 14.5 SECONDS (11.7-14.9)
[2023-03-25 08:04] LABS: ALB/GLOB Ratio 1.1 RATIO (0.9-2.4); AST(SGOT) 136 U/L (15-37); Alanine Aminotransfer ALT/SGPT 73 U/L (16-61); Albumin, Serum 3.1 g/dL (3.2-5.0); Alkaline Phosphatase 101 U/L (45-117); Anion Gap 6 (5-15); BUN 5 mg/dL (7-18); BUN/Creat Ratio 6.3 RATIO (10-20); Chloride 104 mmol/L (98-107); Creatinine, Serum 0.79 mg/dL (0.70-1.30); EST Glomerular Filtration Rate 108 mL/min (>60); Est Glom Filt Rate - Afr Amer 131 mL/min (>60); Estimated Creatinine Clearance 103.42 ml/min; Globulin 2.9 g/dL (2.2-4.2); Glucose 112 mg/dL (74-106); Magnesium 1.7 mg/dL (1.6-2.6); Phosphorus 1.7 mg/dL (2.5-4.9); Potassium 3.9 mmol/L (3.5-5.1); Sodium Level 137 mmol/L (136-145); Thyroid Stim Hormone (TSH) 2.26 uIU/mL (0.358-3.74)
[2023-03-25] MEDS: Pantoprazole Sodium 40 MG Tablet PO (10:15)
--- NOTE | 2023-03-25 12:26 | ADDICTION ---
This functional tester typewriters met with PT to conduct ASAM, MSE, AUDIT assessments and to plan for d/c. PT A+Ox4 and participated actively. All assessments completed and placed in PT's chart. PT plans to f/u with individual counselor at [facility] for follow-up outpatient treatment services. PT did not indicate a need for transportation post d/c from [facility].
[2023-03-25] MEDS: hydrOXYzine PAM 25 MG Capsule 50 MG PO ×2 (14:28→20:05)
[2023-03-26 00:33] VITALS: BP 145/84; PULSE 75; RESP 18; TEMP 36.7; O2SAT 97
[2023-03-26] MEDS: Phenobarbital 32.4 MG Tablet 64.8 MG PO ×3 (00:34→09:02)
[2023-03-26] MEDS: hydrOXYzine PAM 25 MG Capsule 50 MG PO ×2 (00:36→04:37)
[2023-03-26 04:36] VITALS: BP 150/97; PULSE 88; RESP 18; TEMP 36.8; O2SAT 98
[2023-03-26 05:34] VITALS: BMI 35.5
[2023-03-26] MEDS: Budesonide Respules 0.5 MG/2 ML AMPUL.NEB. INHALATION (06:37)
[2023-03-26] MEDS: Albuterol 2.5 MG/3 ML VIAL.NEB. INHALATION (06:37)
[2023-03-26 06:38] VITALS: PULSE 88; RESP 20; O2SAT 92
[2023-03-26] MEDS: Pantoprazole Sodium 40 MG Tablet PO (09:02)
[2023-03-26] MEDS: Thiamine Hydrochloride 100 MG Tablet PO (09:02)
[2023-03-26] MEDS: Folic Acid 1 MG Tablet PO (09:02)
[2023-03-26] MEDS: Gabapentin 300 MG Capsule PO (09:02)
[2023-03-26] MEDS: Multivitamins,Therapeutic Tablet 1 TABLET PO (09:02)
[2023-03-26 09:03] LABS: Absolute Lymphocyte Count 3.43 X10^3/uL (0.83-4.51); Absolute Neutrophil Count 6.9 X10^3/uL (2.0-7.7); Basophil# 0.05 X10^3/uL; Basophil% 0.4 % (0-1); Eosinophil# 0.45 X10^3/uL; Eosinophils% 3.9 % (0-5); Hematocrit 44.9 % (40-54); Lymphocyte # 3.43 X10^3/ul (0.83-4.51); Lymphocyte % 29.6 % (19-41); Mean Corp Hgb Conc 33.4 g/dL (32-36); Mean Corpuscular Hgb 31.1 pg (27.0-32.0); Mean Platelet Vol. 9.7 fl (6.2-12.0); Monocyte# 0.68 X10^3/uL; Monocyte% 5.9 % (0-10); NRBC Flagged by Analyzer 0 % (0-5); Neutrophil # 6.94 X10^3/uL (2.7-7.7); Neutrophil % 59.9 % (47-70); Platelet Count 146 K/mm3 (150-450); RBC Distribution Width CV 16.3 % (11.6-14.6); RBC Distribution Width SD 56.1 fl (35.1-43.9); Red Blood Count 4.83 M/mm3 (4.6-6.2); White Blood Count 11.6 K/mm3 (4.4-11.0)
[2023-03-26 09:09] VITALS: BP 151/97; PULSE 100; RESP 18; TEMP 36.6; O2SAT 98
[2023-03-26] MEDS: Ibuprofen 400 MG Tablet PO (09:13)
[2023-03-26 09:32] LABS: ALB/GLOB Ratio 0.9 RATIO (0.9-2.4); AST(SGOT) 106 U/L (15-37); Alanine Aminotransfer ALT/SGPT 70 U/L (16-61); Albumin, Serum 3.3 g/dL (3.2-5.0); Alkaline Phosphatase 105 U/L (45-117); Anion Gap 8 (5-15); BUN 4 mg/dL (7-18); BUN/Creat Ratio 4.5 RATIO (10-20); Calcium,Total 8.7 mg/dL (8.5-10.1); Chloride 104 mmol/L (98-107); Creatinine, Serum 0.89 mg/dL (0.70-1.30); EST Glomerular Filtration Rate 94 mL/min (>60); Est Glom Filt Rate - Afr Amer 114 mL/min (>60); Globulin 3.5 g/dL (2.2-4.2); Glucose 128 mg/dL (74-106); Potassium 3.3 mmol/L (3.5-5.1); Protein, Total 6.8 g/dL (6.4-8.2); Sodium Level 136 mmol/L (136-145)
--- NOTE | 2023-03-26 10:40 | DCINST_ITS ---
Discharge Instructions Diet Discharge Diet: No restrictions Activity Discharge Activity: Return to Normal Activity Weight Bearing Status: Weight bearing as tolerated Dressing / Incision Call your doctor if you observe: Fever of 101 or Higher, Coldness, Increased Pain, Numbness or Tingling, Change in Color, Inability to urinate, Inability to have a bowel movement, Shortness of breath, Dizziness, Fainting spells, Swelling in the ankles, Chest pain, Prolonged hiccupping, Increased palpitations (irregular heartbeat) and Calf discomfort Follow Up Care When: IN 2 WEEKS Test Results: Test results from this visit will be discussed in further detail at your follow- up appointment, if applicable. Discharge Plan Admission Admit Date/Time: 03/24/23 22:33 Primary Reason for Your Visit: Acute alcohol withdrawal syndrome Attending Provider: David De Luna Primary Care Provider: Rosy Valero Primary Consulting Providers: Marcello Quispe; Berenice Longoria Discharge Orders/Prescriptions Prescriptions: New nicotine 14 mg/24 hr Patch 24 Hour 14 mg transdermal DAILY Qty: 30 0RF thiamine HCl (vitamin B1) [Vitamin B-1] 100 mg Tablet 100 mg PO DAILYCM Qty: 30 2RF folic acid 1 mg Tablet 1 mg PO DAILY@0800 Qty: 30 2RF hydroxyzine HCl 25 mg tablet 25 mg PO TID PRN (Reason: anxiety) Qty: 30 0RF zolpidem [Ambien] 5 mg tablet 5 mg PO QHS PRN (Reason: INSMONIA) Qty: 20 0RF Continued budesonide-formoterol 160-4.5 mcg/actuation HFA aerosol inhaler 2 inh INHALATION BID PRN (Reason: copd) Patient Comments: inhale 2 puffs by mouth 1-2 TIMES PER DAY Referrals / Follow Up: Care Physician,No Primary [Primary Care Provider] - Disposition Disposition (needs filled in before D/C Order can be placed): Home, Self Care
--- NOTE | 2023-03-26 12:49 | NURSING ---
pt left before receiving d/c instructions - will try and call pt to inform of scripts that were sent o [facility] pharm
--- NOTE | 2023-03-26 12:51 | PCM.DC.SUM ---
Providers Date of Admission: 03/24/23 Date of Discharge: 03/26/23 Primary Care Physician: No Primary Care Phys Reason For Visit: ACUTE ALCOHOL WITHDRAWAL AND HYPOKALEMIA OF 3.4 Diagnosis Discharge Diagnosis (1) Desire for detoxification: Status: Acute (2) Alcohol intoxication: Status: Acute Code(s): F10.929 - Alcohol use, unspecified with intoxication, unspecified Qualifiers: Complication of substance-induced condition: uncomplicated Qualified Code(s): F10.920 - Alcohol use, unspecified with intoxication, uncomplicated (3) Hypokalemia: Status: Acute Code(s): E87.6 - Hypokalemia (4) Alcoholic hepatitis: Status: Acute Code(s): K70.10 - Alcoholic hepatitis without ascites (5) Hyperbilirubinemia: Status: Acute Code(s): E80.6 - Other disorders of bilirubin metabolism Plan 52-year-old gentleman admitted with acute alcohol withdrawal syndrome Acute alcohol withdrawal syndrome with history of chronic alcohol use disorder with dependence tolerance and relapse: Patient is stated he drinks about 1 pint of whiskey every day. Patient was being admitted to MedSurg floor. Patient on phenobarbital based order set along with other adjunctive medications gabapentin, Bentyl, Vistaril, clonidine, Klonopin as needed for alcohol withdrawal symptom control. Patient is on thiamine and folate acid. CIWA monitor. sr. social media & mobile manager consulted.. Patient asked for medication for anxiety and insomnia. Patient was given prescription for hydroxyzine and Ambien. He agreed to follow-up with 180. Patient has hypokalemia K3.6. Phosphorus low 1.7. Magnesium 1.7. Scription sent for Neutra-Phos and magnesium chloride. Acute on chronic alcoholic hepatitis and possible alcoholic gastritis -Mild transaminase elevation with improvement on subsequent labs. Advised follow-up in hepatology clinic. Prescription sent for Protonix. History of asthma -As needed albuterol Tobacco abuse -Recommend tobacco cessation -Continue nicotine patch DVT prophylaxis -Low risk -Discontinue Lovenox -Encourage frequent and early mobility Discharge medication reconciliation done. Discharge follow-up instructions completed. Discharge process discussed with the patient and all questions were answered to patient's satisfaction. Follow with PCP in 1 to 2 weeks Total time spent, exact 35 minutes on discharge meds reconciliation, examination, coordination of care with nurses and ancillary staff, review of imaging and blood test and discussion with the patient on follow-up instructions. Medications at Discharge Home Medications budesonide-formoterol HFA 160 mcg-4.5 mcg/actuation aerosol inhaler 2 inh inhalation BID PRN copd 09/12/20 folic acid 1 mg tablet 1 mg PO DAILY@0800 #30 tabs 03/26/23 hydroxyzine HCl 25 mg tablet 25 mg PO TID PRN anxiety #30 tabs 03/26/23 magnesium chloride 64 mg (magnesium chloride) tablet,delayed release 128 mg (2 x 64 mg) PO BID 3 days #12 tabs 03/26/23 nicotine 14 mg/24 hr daily transdermal patch 14 mg transdermal DAILY #30 ea 03/26/23 pantoprazole 40 mg tablet,delayed release (Protonix) 40 mg PO DAILY #30 tabs 03/26/23 potassium, sodium phosphates 280 mg-160 mg-250 mg oral powder packet (Phos-NaK) 1 packet PO TID 3 days #9 ea 03/26/23 thiamine HCl (vitamin B1) 100 mg tablet (Vitamin B-1) 100 mg PO DAILYCM #30 tabs 03/26/23 zolpidem 5 mg tablet (Ambien) 5 mg PO QHS PRN INSMONIA #20 tabs 03/26/23 Physical Exam Narrative General: Alert, Oriented x3, Cooperative HEENT: Atraumatic, PERRLA, EOMI, Normocephalic Oral: No Gingival or Mucosal Lesions/ Ulcerations Neck: Supple, No JVD, Negative Carotid Bruits Lungs: Air entry diminished in bilateral lung bases. No crepitation/rhonchi Cardiovascular: Regular rate, Regular Rhythm, Normal S1, Normal S2, No murmurs Abdomen: Bowel Sounds Present, Soft, Non Tender, Non-Distended : No renal angle tenderness. No suprapubic tenderness. Extremities: No edema, Capillary Refill Less than 3 Seconds Skin: No rashes, No breakdown Musculoskeletal: No Tenderness to Palpation of Joints or Extremities. No appreciable tremors. Neurological: Cranial nerves II-XII grossly intact, DTR 2+/4. No acute focal neurological deficit. Psych/Mental Status: Normal Affect, Appropriate. Weight / BMI Weight Weight: 234 lb 5.622 oz Body Mass Index (BMI) 35.5 ABG / Lab / Microbiology Data 03/26/23 08:38 03/26/23 08:38 Laboratory: Laboratory Results - last 24 hr 03/26/23 08:38: WBC 11.6 H, RBC 4.83, Hgb 15.0, Hct 44.9, MCV 93.0, MCH 31.1, MCHC 33.4, RDW Std Deviation 56.1 H, RDW Coeff of Cristofer 16.3 H, Plt Count 146 L, MPV 9.7, Immature Gran % (Auto) 0.300, Neut % (Auto) 59.9, Lymph % (Auto) 29.6, [place] % (Auto) 5.9, Eos % (Auto) 3.9, Baso % (Auto) 0.4, Absolute Neuts (auto) 6.9, Absolute Lymphs (auto) 3.43, Nucleated RBC % 0, Sodium 136, Potassium 3.3 L, Chloride 104, Carbon Dioxide 24.0, Anion Gap 8, BUN 4 L, Creatinine 0.89, Estim Creat Clear Calc 91.80, Est GFR (MDRD) Af Amer 114, Est GFR (MDRD) Non-Af 94, BUN/Creatinine Ratio 4.5 L, Glucose 128 H, Calcium 8.7, Total Bilirubin 1.30 H, AST 106 H, ALT 70 H, Alkaline Phosphatase 105, Total Protein 6.8, Albumin 3.3, Globulin 3.5, Albumin/Globulin Ratio 0.9 D/C Instructions Discharge Diet: No restrictions Weight Bearing Status: Weight bearing as tolerated Call your doctor if you observe: Fever of 101 or Higher, Coldness, Increased Pain, Numbness or Tingling, Change in Color, Inability to urinate, Inability to have a bowel movement, Shortness of breath, Dizziness, Fainting spells, Swelling in the ankles, Chest pain, Prolonged hiccupping, Increased palpitations (irregular heartbeat) and Calf discomfort When: IN 2 WEEKS Meaningful Use Info Meaningful Use Diagnoses (Choose all that apply): None applicable Discharge Plan Admission Admit Date/Time: 03/24/23 22:33 Primary Reason for Your Visit: Acute alcohol withdrawal syndrome Attending Provider: David De Luna Primary Care Provider: Care Physician,No Primary Consulting Providers: Marcello Quispe; Berenice Longoria Discharge Orders/Prescriptions Prescriptions: New nicotine 14 mg/24 hr Patch 24 Hour 14 mg transdermal DAILY Qty: 30 0RF thiamine HCl (vitamin B1) [Vitamin B-1] 100 mg Tablet 100 mg PO DAILYCM Qty: 30 2RF folic acid 1 mg Tablet 1 mg PO DAILY@0800 Qty: 30 2RF hydroxyzine HCl 25 mg tablet 25 mg PO TID PRN (Reason: anxiety) Qty: 30 0RF zolpidem [Ambien] 5 mg tablet 5 mg PO QHS PRN (Reason: INSMONIA) Qty: 20 0RF potassium, sodium phosphates [Phos-NaK] 280-160-250 mg powder in packet 1 packet PO TID 3 Days Qty: 9 0RF magnesium chloride 64 mg tablet,delayed release (DR/EC) 128 mg PO BID 3 Days Qty: 12 0RF pantoprazole [Protonix] 40 mg tablet,delayed release (DR/EC) 40 mg PO DAILY Qty: 30 1RF Continued budesonide-formoterol 160-4.5 mcg/actuation HFA aerosol inhaler 2 inh INHALATION BID PRN (Reason: copd) Patient Comments: inhale 2 puffs by mouth 1-2 TIMES PER DAY Referrals / Follow Up: Hugo Gan DO [Med Staff - Active Staff] - Within 1 Month (For alcoholic hepatitis) Care Physician,No Primary [Primary Care Provider] - Disposition Disposition (needs filled in before D/C Order can be placed): Home, Self Care Charges/Coding Visit Charges Inpatient E&M: 12806 Disch Hosp >30min
== END 2023-03-26 12:48 | disposition home or self-care (01) | DRG 775 ==
LOC: ED 21:54 → MS3 22:49
PROVIDERS: Internal Medicine; Admitting Provider Internal Medicine; Emergency Provider Emergency Medicine; Visit Provider Internal Medicine
DX: F10.139 Alcohol abuse with withdrawal, unspecified (principal); E87.6 Hypokalemia; K70.10 Alcoholic hepatitis without ascites; F10.182 Alcohol abuse with alcohol-induced sleep disorder; J45.909 Unspecified asthma, uncomplicated; F17.210 Nicotine dependence, cigarettes, uncomplicated; Y90.6 Blood alcohol level of 120-199 mg/100 ml
CPT/HCPCS: 36415; 80053; 80307; 82077; 83735; 84100; 84443; 85025; 85610; 93005; 94640; 94668; 99284; 99406; J7030; J7050; A4216; J2405; J3490